=== PATIENT | male | born 1970 | race Two or more races ===

== ENCOUNTER 2024-11-20 06:10 | Day surgery (SDC) | payer MEDICAID, SELFPAY ==
--- NOTE | 2024-11-18 06:00 | EKG_ITS ---
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
[2024-11-18 11:10] VITALS: BMI 18.9
[2024-11-18 12:21] LABS: Basophils % (Auto) 1 % (0-2.5); Eosinophils # (Auto) 0.1 Thou/mm3 (0.0-0.5); Eosinophils % (Auto) 2 % (0-10); Hematocrit 40.9 % (41.0-53.0); Hemoglobin 13.1 g/dL (13.5-16.0); Immature Granulocytes % (Auto) 0 % (0-0); Lymphocytes # (Auto) 1.3 Thou/mm3 (1.0-4.8); Lymphocytes % (Auto) 34 % (10-50); Mean Corpuscular Hemoglobin 31.5 pg (25.0-35.0); Mean Corpuscular Volume 98 fL (80-100); Monocytes # (Auto) 0.3 Thou/mm3 (0.0-0.8); Monocytes % (Auto) 8 % (0-12); Neutrophils # (Auto) 2.1 Thou/mm3 (1.8-7.7); Neutrophils % (Auto) 55 % (37-80); Nucleated Red Blood Cell % 0 /100 WBC (0); Platelet Count 232 Thou/mm3 (140-440); RDW Standard Deviation 46.9 fL (35.1-43.9); Red Blood Count 4.16 Miln/mm3 (4.50-5.90); White Blood Count 3.8 Thou/mm3 (3.8-10.6)
[2024-11-18 12:28] LABS: INR 1.1 (0.9-1.3); Partial Thromboplastin Time 30.8 Seconds (22.0-36.0); Prothrombin Time 12.2 Seconds (9.0-12.2)
[2024-11-18 12:35] LABS: Alanine Aminotransferase 13 U/L (10-49); Albumin, Serum 4.4 gm/dL (3.5-5.0); Albumin/Globulin Ratio 1.6 (1.2-2.2); Alkaline Phosphatase 75 U/L (46-116); Anion Gap 6 (7-16); Aspartate Amino Transferase 24 U/L (0-34); BUN/Creatinine Ratio 16 Ratio (12-20); Bilirubin,Total 0.4 mg/dL (0.3-1.2); Blood Urea Nitrogen 13 mg/dL (9-23); Calcium 9.2 mg/dL (8.3-10.6); Calcium (Corrected) 9.2 mg/dL (8.5-10.1); Carbon Dioxide 30.2 mMol/L (20.0-31.0); Chloride 103 mMol/L (98-107); Creatinine (Component) 0.8 mg/dL (0.6-1.3); Estimated Creatinine Clearance 81.9 mL/min (>60); Globulin 2.7 gm/dL (2.3-3.5); Glucose 55 mg/dL (74-106); Osmolality,Calculated 275 (275-295); Potassium 4.2 mMol/L (3.4-5.1); Sodium 139 mMol/L (136-145); Total Protein 7.1 gm/dL (5.7-8.2); eGFR > 60 See Note
--- NOTE | 2024-11-18 14:43 | SUR.PREOP ---
Cardiac history and records reviewed with Dr Brady.
[2024-11-20] VITALS (8 sets, daily range): BP systolic 127–145; BP diastolic 67–85; PULSE 58–79; RESP 13–20; TEMP 36.1–36.9; O2SAT 95–100; BMI 19.3
--- NOTE | 2024-11-20 08:26 | SUR.PREOP ---
Patient expressed gratitude for prayer before their procedure.
--- NOTE | 2024-11-20 11:59 | SUR.PHASEI ---
pt received from OR in recovery bay 7. pt obtunded, breathing unlabored on oxymask 8l, oral airway in place. v/s stable. pt dressing to left lower abd cdi. report received from Dr. Brady and Pedro CORRAL.
--- NOTE | 2024-11-20 12:12 | ESOP_ITS ---
Date of Procedure 11/20/24 Pre Op Diagnosis Symptomatic left inguinal hernia Post Op Diagnosis Same Procedure Repair of the left indirect inguinal hernia with high ligation of the sac. Findings Patient is found to have a large defect measuring about 4 cm at least the internal ring along with the sac. Bubbles were visible through the opening. Patient had a reasonably strong inguinal floor and did not require reconstruction Procedure Description After the patient was given endotracheal anesthesia, the lower abdomen and genitalia were washed with chloreprep solution and draped in a sterile manner. Then a standard left groin incision was made for about 5 - in length. External oblique was incised and the patient was found to have an indirect hernia. The cord structures were encircled around a [place] drain. The cremaster was opened and I found an indirect hernial sac that is extending all the way down to the root of the scrotum. I the sac from the remaining cord structures carefully and I divided it in the middle. The distal portion of the sac was left open along with the cord structures. The proximal portion of the sac was dissected out to the internal ring and I found this to be ovoid measuring at least 4 cm in diameter. Therefore I used an Endo cutter 45 mm abhilash with a blue clip. It w. As then divided and allowed to retract. I palpated the floor of the inguinal canal which appeared to be reasonably strong. I did not see any need for reconstruction.. I did not see any need for mesh reinforcement I close external oblique with a running 2-0 Vicryl and subcutaneous tissue with 30 plain. I injected half percent Marcaine with epinephrine for analgesia about 20 mL. Skin was closed with 4-0 Monocryl and dressing was applied with Adaptic and 4 x 4. Patient tolerated the procedure and returned to recovery room stable condition Anesthesia GETA Pathology / specimen None Estimated Blood Loss 10 Surgeon Elizabeth Reed MD Surgical Staff Operation Date: 11/20/24 10:15 Case Staff Anesthesiologist: Morgan Brady RNdelicatessen department manager: Bernadette Painting
--- NOTE | 2024-11-20 12:25 | SUR.PHASEI ---
pt sleeping with eyes closed, awakens to voice and immediately falls back to sleep, breathing unlabored, dressing to left lower abdomen clean, dry, and intact, report from Aime CORRAL
--- NOTE | 2024-11-20 12:41 | SUR.PHASEI ---
pt awake, able to keep eyes open, breathing unlabored, tolerating oral fluids without difficulty swallowing or nausea or vomiting.
--- NOTE | 2024-11-23 17:51 | PD.ANESPROG ---
Documentation for date of: 11/23/24 POST ANESTHESIA NOTE: Patient had GETA for L inguinal hernia repair on 11/20/24. I just called his number for follow up but no answer. Morgan Brady MD Anesthesia Progress Note Progress Note Most recent Vital Signs: Last Vital Signs Temp 98.3 F 11/20/24 13:00 Pulse 68 11/20/24 13:00 Resp 17 11/20/24 13:00 BP 130/73 11/20/24 13:00 Pulse Ox 100 11/20/24 13:00 O2 Flow Rate 3 11/20/24 12:30
== END 2024-11-20 13:33 | disposition home or self-care (01) ==
PROVIDERS: PCP Nurse Practitioner Family; Referring Provider Surgery; Visit Provider Surgery
PROC: (CPT 49505; principal; 2024-11-20 10:00)
DX: K40.90 Unilateral inguinal hernia, without obstruction or gangrene, not specified as recurrent (principal); Z01.810 Encounter for preprocedural cardiovascular examination
CPT/HCPCS: 49505; 36415; 80053; 85025; 85610; 85730; 93005; A4217; A4649; J1100; J2371; J2704; J2765; J3010; J3490; A9270; J1596; J1805